=== PATIENT | male | born 1985 | race Two or more races ===

== ENCOUNTER 2021-06-11 16:44 | Emergency (ER) | payer OTHER ==
[~2021-06-11] VITALS: Ht 182.9 cm; Wt 80.3 kg
[2021-06-11] MEDS ORDERED: IBUPROFEN 600 MG TABLET PO ONE (19:30)
[2021-06-11] MEDS ORDERED: TETANUS/DIPHTHERIA TOXOID [ADULT] 0.5 ML VIAL IM ONE ×2 (19:30→20:16)
[2021-06-11] MEDS ORDERED: CLINDAMYCIN 150 MG CAP PO ONE (19:30)
[2021-06-11] MEDS ORDERED: IBUPROFEN 600 MG TABLET ONE (20:15)
[2021-06-11] MEDS ORDERED: CLINDAMYCIN 150 MG CAP ONE (20:15)
[2021-06-11] MEDS ORDERED: CLIN-141 PO (20:41)
[2021-06-11] MEDS ORDERED: IBUP-1552 PO (20:41)
[2021-06-11 20:59] VITALS: BP 119/72
== END 2021-06-11 21:08 | disposition home or self-care (01) ==
LOC: EDH 16:44
DX: S80.812A Abrasion, left lower leg, initial encounter (principal); L03.116 Cellulitis of left lower limb; X58.XXXA Exposure to other specified factors, initial encounter; Y93.89 Activity, other specified; Y92.89 Other specified places as the place of occurrence of the external cause; Y99.8 Other external cause status
CPT/HCPCS: 73590; 90471; 90714